=== PATIENT | male | born 1950 | race Caucasian/White ===

== ENCOUNTER 2020-06-25 07:32 | Day surgery (SDC) | payer MEDICARE, MEDICAID ==
[~2020-06-25] VITALS: Ht 175.3 cm; Wt 90.0 kg
[~2020-06-25 07:32] MED LIST: ACET-2119 PO; AMLO-93 PO; ASPI81TA52 PO; BENA40TA8 PO; CALC-781 PO; CHOLECALCIFEROL; INSU100V12 SQ; INSU100V13 SQ; METF500T PO; METO-384 PO; PANT-47 PO; REM100I; SIMV-42 PO; UBID100C16 PO; [UNRECOGNIZED DRUG - OTHER]
[2020-06-25] MEDS ORDERED: MIDAZolam 5mg/5ml vial ONE (07:41)
[2020-06-25] MEDS ORDERED: fentaNYL/PF 50MCG/1 ML 2ML syringe ONE (07:41)
[2020-06-25] MEDS ORDERED: LIDOcaine Viscous 15ml cup ONE (07:41)
[2020-06-25 07:45] VITALS: BP 138/76
[2020-06-25] MEDS ORDERED: LACTC PO (08:34)
[2020-06-25] MEDS ORDERED: ATOR80TA PO (08:35)
[2020-06-25] MEDS ORDERED: FENO134C PO (08:35)
[2020-06-25] MEDS ORDERED: HYDR200T80 PO (08:37)
[2020-06-25] MEDS ORDERED: ATR0.5NEB IH (08:38)
[2020-06-25] MEDS ORDERED: MULT-381 PO (08:39)
[2020-06-25] MEDS ORDERED: LEFL10TA16 PO (08:40)
[2020-06-25] MEDS ORDERED: CARV12.5 PO (08:41)
[2020-06-25] MEDS ORDERED: ASCO500C17 PO (08:41)
[2020-06-25] MEDS ORDERED: LIGH1DRO RIGHTEYE (08:42)
[2020-06-25] MEDS ORDERED: FLO0.4C PO (08:43)
[2020-06-25] MEDS ORDERED: SENN-263 PO (08:43)
[2020-06-25] MEDS ORDERED: LORA-269 PO (08:44)
[2020-06-25] MEDS ORDERED: TRAM50TA2 PO (08:46)
[2020-06-25 09:15] VITALS: BP 125/80
[2020-06-25 09:25] VITALS: BP 123/66
[2020-06-25 09:35] VITALS: BP 118/72
[2020-06-25 09:45] VITALS: BP 121/74
== END 2020-06-25 10:17 | disposition home or self-care (01) ==
LOC: GI LAB 07:32
PROVIDERS: ATTEND Internal Medicine Gastroenterology
DX: Z12.11 Encounter for screening for malignant neoplasm of colon (principal); Z86.010 Personal history of colon polyps; Z79.899 Other long term (current) drug therapy
CPT/HCPCS: 82948; 99153; G0105; G0500; J2250; J3010; J7040; 45378; 99152; A4620